=== PATIENT | female | born 1970 | race Hispanic/Latino ===

== ENCOUNTER 2024-01-01 07:51 | Emergency (ER) | payer OTHER ==
[~2024-01-01] VITALS: Ht 165.1 cm; Wt 81.6 kg
[2024-01-01 08:00] VITALS: PULSE 89; RESP 16; TEMP 98; O2SAT 100
== END 2024-01-01 08:30 | disposition home or self-care (01) ==
LOC: ER 07:57
DX: K62.89 Other specified diseases of anus and rectum (principal); K59.09 Other constipation; R10.30 Lower abdominal pain, unspecified; E11.9 Type 2 diabetes mellitus without complications; E78.5 Hyperlipidemia, unspecified; E03.9 Hypothyroidism, unspecified; F17.210 Nicotine dependence, cigarettes, uncomplicated
CPT/HCPCS: 99282

== ENCOUNTER 2024-02-02 20:37 | Observation (INO) | payer OTHER ==
[~2024-02-02] VITALS: Ht 195.6 cm; Wt 81.6 kg
[2024-02-02 20:50] VITALS: TEMP 97.6
[2024-02-02 20:59] LABS: BASOPHILS % 0.3 % (0.0-1.0); EOSINOPHILS # (AUTO) 0.1 (0.0-0.4); EOSINOPHILS % 1.1 % (0.0-6.0); HEMATOCRIT 37.3 % (34.2-44.1); HEMOGLOBIN 12.3 g/dL (12.0-16.0); LYMPHOCYTES # (AUTO) 5.1 (1.0-3.2); LYMPHOCYTES % 38.6 % (18.0-39.1); MEAN CORPUSCULAR HEMOGLOBIN 31.2 pg (28-32); MEAN CORPUSCULAR VOLUME 94.7 fL (81-99); MONOCYTES # (AUTO) 0.7 (0.2-0.8); MONOCYTES % 5.5 % (4.4-11.3); NEUTROPHILS # (AUTO) 7.2 (2.1-6.9); PLATELET COUNT 235 x10e3/uL (140-360); RED BLOOD COUNT 3.94 x10e6/uL (3.6-5.1); WHITE BLOOD COUNT 13.25 x10e3/uL (4.8-10.8)
[2024-02-02] MEDS: SODIUM CHLORIDE 0.9% 1000ML 1,000 ML IV STA (21:02)
[2024-02-02 21:17] LABS: ALBUMIN 3.8 g/dL (3.5-5.0); ANION GAP 18.4 mmol/L (8-16); BILIRUBIN,TOTAL 0.3 mg/dL (0.2-1.2); CALCIUM 9.1 mg/dL (8.4-10.2); CREATININE, SERUM 0.8 mg/dL (0.57-1.11); TOTAL PROTEIN 7.5 g/dL (6.5-8.1)
[2024-02-02 21:20] LABS: POTASSIUM 2.4 mmol/L (3.5-5.1)
[2024-02-02] MEDS: ONDANSETRON HCL INJ 2MG/ML 2ML 2 MG/ML VIAL IV STA (21:21)
[2024-02-02 21:23] LABS: TROPONIN I 0.003 ng/mL (0-0.300)
[2024-02-02] MEDS: POTASSIUM CHLORIDE 20MEQ/100ML 100 ML IV STA (21:45)
[2024-02-02] MEDS: POTASSIUM CHLORIDE 20 MEQ TAB CR PO STA (21:45)
[2024-02-02 21:48] LABS: AMPHETAMINES SCREEN,URINE NEGATIVE (NEGATIVE); BENZODIAZEPINES SCREEN,URINE NEGATIVE (NEGATIVE); CLARITY,URINE CLEAR (CLEAR); COCAINE SCREEN,URINE NEGATIVE (NEGATIVE); COLOR,URINE YELLOW (YELLOW); GLUCOSE, URINE NEGATIVE (NEGATIVE); KETONES,URINE 1+ (NEGATIVE); LEUKOCYTE ESTERASE ,URINE NEGATIVE (NEGATIVE); NITRITE,URINE NEGATIVE (NEGATIVE); OPIATES SCREEN,URINE NEGATIVE (NEGATIVE); PH,URINE 5.5 (5 - 7); PHENCYCLIDINE SCREEN,URINE NEGATIVE (NEGATIVE); PROTEIN,URINE DIPSTICK 1+ (NEGATIVE)
[2024-02-02 21:49] LABS: BILIRUBIN,URINE NEGATIVE (NEGATIVE); CANNABINOIDS SCREEN,URINE POSITIVE (NEGATIVE); METHADONE SCREEN, URINE NEGATIVE (NEGATIVE); URINE UROBILINOGEN 0.2 mg/dL (0.2 - 1)
[2024-02-02 21:51] LABS: BACTERIA,URINE MODERATE /HPF; EPITHELIAL CELLS,URINE MODERATE /LPF; MUCUS,URINE MODERATE (RARE)
[2024-02-02 22:00] VITALS: PULSE 89; RESP 16; O2SAT 100
[2024-02-02] MEDS ORDERED: Morphine 2mg Syringe 2 MG/ML SYR IV PRN (22:15)
[2024-02-02] MEDS ORDERED: ONDANSETRON HCL INJ 2MG/ML 2ML 2 MG/ML VIAL IV PRN (22:15)
[2024-02-02] MEDS: LORAZEPAM INJ 2 MG/ML VIAL IV STA (22:19)
[2024-02-02 22:44] VITALS: PULSE 98; RESP 20
[2024-02-02 23:22] LABS: CORONAVIRUS COVID-19 AG NEGATIVE (NEGATIVE); INFLUENZA A AG NEGATIVE (NEGATIVE); INFLUENZA B AG NEGATIVE (NEGATIVE); STREPTOCOCCUS GRP A ANTIGEN NEGATIVE (NEGATIVE)
[2024-02-02 23:40] VITALS: BP 159/86; PULSE 99; RESP 18; TEMP 97.9; O2SAT 99
[2024-02-02] MEDS ORDERED: POLYETHYLENE GLYCOL 3350 17 GM PACK PO PRN (23:45)
[2024-02-02] MEDS ORDERED: LABETALOL HCL 5 MG/ML 20ML VIAL IV PRN (23:45)
[2024-02-02] MEDS ORDERED: ACETAMINOPHEN 325 MG TAB PO PRN (23:45)
[2024-02-02] MEDS: SODIUM CHLORIDE 0.9% 1000ML 1,000 ML IV SCH (23:53)
[2024-02-03] VITALS (8 sets, daily range): BP systolic 127–159; BP diastolic 68–110; PULSE 95–110; RESP 17–22; TEMP 97–98.5; O2SAT 97–100
[2024-02-03 05:51] LABS: BASOPHILS % 0.2 % (0.0-1.0); EOSINOPHILS % 0.2 % (0.0-6.0); HEMATOCRIT 35.7 % (34.2-44.1); HEMOGLOBIN 12.3 g/dL (12.0-16.0); LYMPHOCYTES # (AUTO) 1.9 (1.0-3.2); MEAN CORPUSCULAR HEMOGLOBIN 31.1 pg (28-32); MEAN CORPUSCULAR HGB CONC 34.5 g/dL (31-35); MEAN CORPUSCULAR VOLUME 90.4 fL (81-99); MONOCYTES # (AUTO) 0.7 (0.2-0.8); MONOCYTES % 5.6 % (4.4-11.3); NEUTROPHILS # (AUTO) 10.1 (2.1-6.9); NEUTROPHILS % 78.5 % (38.7-80.0); PLATELET COUNT 240 x10e3/uL (140-360); RED BLOOD COUNT 3.95 x10e6/uL (3.6-5.1); RED CELL DISTRIBUTION WIDTH 13.2 % (11.7-14.4); WHITE BLOOD COUNT 12.89 x10e3/uL (4.8-10.8)
[2024-02-03 06:19] LABS: ALBUMIN 3.8 g/dL (3.5-5.0); ANION GAP 15.8 mmol/L (8-16); BILIRUBIN,TOTAL 0.4 mg/dL (0.2-1.2); CALCIUM 9.5 mg/dL (8.4-10.2); CREATININE, SERUM 0.7 mg/dL (0.57-1.11); POTASSIUM 3.8 mmol/L (3.5-5.1); TOTAL PROTEIN 7.7 g/dL (6.5-8.1)
[2024-02-03 06:54] LABS: CHOL/HDL RATIO 5.1 (3.0-3.6); MAGNESIUM 1.6 MG/DL (1.3-2.1); PHOSPHORUS 3.9 MG/DL (2.3-4.7)
[2024-02-03 07:03] LABS: TROPONIN I 0.001 ng/mL (0-0.300)
[2024-02-03 07:16] LABS: FREE T4 (FREE THYROXINE) 0.99 ng/dL (0.8-1.8); THYROID STIMULATING HORMONE 3.075 uIU/mL (0.350-4.940)
[2024-02-03] MEDS ORDERED: amberen PO (08:13)
[2024-02-03] MEDS: FAMOTIDINE 20 MG TAB PO SCH (08:19)
[2024-02-03] MEDS: DOCUSATE SODIUM 100 MG CAP PO SCH (08:19)
[2024-02-03] MEDS: ACETAMIN/BUTALBITAL/CAFFEINE TAB PO PRN (10:28)
[2024-02-03] MEDS: TRIMETHOPRIM/SULFAMETHOXAZOLE 160-800 MG TAB PO ONE (10:28)
[2024-02-03] MEDS: MAGNESIUM SULFATE 2GM/50ML 50 ML IV ONE (10:29)
[2024-02-03] MEDS: LORAZEPAM 1 MG TAB PO ONE (10:29)
[2024-02-03] MEDS: METFORMIN HCL 500 MG TAB CR PO ONE (12:00)
[2024-02-03] MEDS: METOPROLOL SUCCINATE 25 MG TAB XL PO ONE (12:00)
[2024-02-03] MEDS: POTASSIUM CHLORIDE 10MEQ EA PO ONE (15:11)
[2024-02-03 15:16] LABS: CREATINE KINASE 177 IU/L (29-168)
[2024-02-03 15:24] LABS: TROPONIN I < 0.001 ng/mL (0-0.300)
[2024-02-03] MEDS: BUSPIRONE HCL 5 MG TAB PO ONE (16:35)
[2024-02-03] MEDS ORDERED: ACETAMINOPHEN325 M1 PO (18:27)
[2024-02-03] MEDS ORDERED: BUSPIRONE HCL7.5 MG PO (18:27)
[2024-02-03] MEDS ORDERED: TOPROL XL25 MG PO (18:27)
[2024-02-03] MEDS ORDERED: BACTRIM DS TAB1 EACH PO (18:27)
[2024-02-03] MEDS ORDERED: FIORICET 50-301 EACH PO (18:27)
[2024-02-03] MEDS ORDERED: ONDANSETRON HCL 4 MG ORAL DISINTEGRATING TAB PO PRN (19:00)
[2024-02-03] MEDS ORDERED: CRESTOR 10MG PO SCH (21:00)
[2024-02-04] MEDS ORDERED: METFORMIN HCL 500 MG TAB PO SCH (07:30)
[2024-02-04] MEDS ORDERED: METOPROLOL SUCCINATE 25 MG TAB XL PO SCH (09:00)
== END 2024-02-03 19:40 | disposition home or self-care (01) ==
LOC: ER 20:42 → ERHOLD 22:05 → MED/SURG2 23:23
PROVIDERS: ADMIT Internal Medicine; ATTEND Internal Medicine
DX: F41.0 Panic disorder [episodic paroxysmal anxiety] (principal); F43.0 Acute stress reaction; F41.8 Other specified anxiety disorders; E87.6 Hypokalemia; E11.65 Type 2 diabetes mellitus with hyperglycemia; Z79.84 Long term (current) use of oral hypoglycemic drugs; E87.20 Acidosis, unspecified; E83.42 Hypomagnesemia; N95.1 Menopausal and female climacteric states; R23.2 Flushing; R42 Dizziness and giddiness; R07.89 Other chest pain; R51.9 Headache, unspecified; D72.829 Elevated white blood cell count, unspecified; I10 Essential (primary) hypertension; I25.2 Old myocardial infarction; E11.69 Type 2 diabetes mellitus with other specified complication; E78.5 Hyperlipidemia, unspecified; E03.9 Hypothyroidism, unspecified; R63.4 Abnormal weight loss; Z68.21 Body mass index [BMI] 21.0-21.9, adult; R94.31 Abnormal electrocardiogram [ECG] [EKG]; Z11.52 Encounter for screening for COVID-19; Z91.51 Personal history of suicidal behavior; Z79.899 Other long term (current) drug therapy
CPT/HCPCS: 36415 ×2; 70450; 71045; 80053 ×2; 80061; 80307; 80320; 81001; 82550 ×2; 82948; 83036; 83518; 83735; 83880; 84100; 84439; 84443; 84484 ×2; 85025 ×2; 87070; 87428; 93005; 94799 ×2; 99284; G0378 ×2; J2060; J2405; J3475; J3480; J7030 ×2

== ENCOUNTER 2024-02-12 10:33 | Emergency (ER) | payer OTHER ==
[~2024-02-12] VITALS: Ht 167.6 cm; Wt 81.6 kg
[~2024-02-12 10:33] MED LIST: ACETAMINOPHEN325 M1 PO; BACTRIM DS TAB1 EACH PO; BUSPIRONE HCL7.5 MG PO; FIORICET 50-301 EACH PO; TOPROL XL25 MG PO; amberen PO
[2024-02-12 10:42] VITALS: TEMP 98.4
[2024-02-12] MEDS ORDERED: METFORMIN HCL500 MG PO (10:55)
[2024-02-12] MEDS ORDERED: SODIUM CHLORIDE FLUSH 10 ML SYR IV PRN (11:00)
[2024-02-12] MEDS: LORAZEPAM INJ 2 MG/ML VIAL IV ONE (11:01)
[2024-02-12 11:06] LABS: BASOPHILS % 0.3 % (0.0-1.0); EOSINOPHILS # (AUTO) 0.1 (0.0-0.4); EOSINOPHILS % 1.2 % (0.0-6.0); HEMATOCRIT 40.9 % (34.2-44.1); HEMOGLOBIN 13.6 g/dL (12.0-16.0); LYMPHOCYTES # (AUTO) 2.8 (1.0-3.2); LYMPHOCYTES % 26.4 % (18.0-39.1); MEAN CORPUSCULAR HEMOGLOBIN 31.9 pg (28-32); MEAN CORPUSCULAR HGB CONC 33.3 g/dL (31-35); MEAN CORPUSCULAR VOLUME 95.8 fL (81-99); MONOCYTES # (AUTO) 0.6 (0.2-0.8); MONOCYTES % 5.3 % (4.4-11.3); NEUTROPHILS % 66.5 % (38.7-80.0); PLATELET COUNT 262 x10e3/uL (140-360); RED BLOOD COUNT 4.27 x10e6/uL (3.6-5.1); RED CELL DISTRIBUTION WIDTH 13.2 % (11.7-14.4); WHITE BLOOD COUNT 10.55 x10e3/uL (4.8-10.8)
[2024-02-12 11:34] LABS: ALANINE AMINOTRANSFERASE 11 IU/L (0-55); ALBUMIN 3.9 g/dL (3.5-5.0); ALBUMIN/GLOBULIN RATIO 0.8 (0.8-2.0); ALKALINE PHOSPHATASE 92 IU/L (40-150); ANION GAP 19.6 mmol/L (8-16); BILIRUBIN,TOTAL 0.2 mg/dL (0.2-1.2); BLOOD UREA NITROGEN 15 mg/dL (7-26); BUN/CREATININE RATIO 18 (6-25); CALCIUM 10.3 mg/dL (8.4-10.2); CARBON DIOXIDE 17 mmol/L (22-29); CHLORIDE 105 mmol/L (98-107); CREATININE, SERUM 0.82 mg/dL (0.57-1.11); EST GLOMERULAR FILTRATION RATE 87 ML/MIN (>=60); GLUCOSE 166 mg/dL (74-118); POTASSIUM 4.6 mmol/L (3.5-5.1); SODIUM 137 mmol/L (136-145); TOTAL PROTEIN 8.5 g/dL (6.5-8.1)
[2024-02-12 11:39] LABS: TROPONIN I 0.005 ng/mL (0-0.300)
[2024-02-12 14:40] VITALS: PULSE 85; RESP 18; O2SAT 100
== END 2024-02-12 14:50 | disposition home or self-care (01) ==
LOC: ER 10:38
DX: R06.02 Shortness of breath (principal); R07.89 Other chest pain; F41.9 Anxiety disorder, unspecified; E11.65 Type 2 diabetes mellitus with hyperglycemia; I10 Essential (primary) hypertension; E78.5 Hyperlipidemia, unspecified; E03.9 Hypothyroidism, unspecified; D64.9 Anemia, unspecified
CPT/HCPCS: 36415; 71045; 80053; 83880; 84484; 84702; 85025; 93005; 94760; 99284; J2060